=== PATIENT | female | born 1980 | race Caucasian/White ===

== ENCOUNTER → 2020-03-17 | Outpatient (CLI) | payer OTHER ==
[~2020-03-17] MED LIST: ASPI81TA26 PO; CLAR10CA3 PO; E-Z-GAS II EFFERVESCENT PACKET (SODIUM BICARB./CITRIC ACID/SIMETHICONE) As Ordered ONE; E-Z-HD 98% w/w 340GM SUSP BTL As Ordered ONE; E-Z-PAQUE 96% w/w SUSP 176GM BTL As Ordered ONE; IMIT50TA PO; LAMI1TAB7 PO; MULTCAP PO; VITAD400CA FT
--- NOTE | 2020-03-17 14:59 | REP ---
Examination Requested: Esophagram Barium Swallow Reason For Exam/Comment: Dysphasia Esophagram: The procedure was performed RICHARD Wells, under the direct supervision of Dr. Mccarthy. The images were reviewed with Dr. Mccarthy. 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 The superior mediastinal structures are midline. The heart size is within normal limits. The lungs are clear. There are bilateral thyroid nodule calcifications. Liquid barium and gas producing granules were given in the erect position as well as liquid barium in the prone oblique position, in order to perform a double contrast esophagram examination. Oral and pharyngeal stages of the examination were unremarkable. Esophageal transport is efficient and there is no esophagitis, stricture, or mucosal ring noted. There is no hiatal hernia noted. Gastroesophageal reflux was not visualized during the course of this exam. Impression: 1. Unremarkable esophagram. 0.2 minutes of fluoroscopy time was utilized for this procedure. Some fluoroscopic images are performed with last image hold technology. These images require no additional radiation. Reviewed by RICHARD Bourgeois 03/17/2020 02:32 P Electronically Signed by Rei Mccarthy MD 03/17/2020 02:49 P
== END ==
LOC: M RAD 07:36
PROVIDERS: ATTEND Otolaryngology
DX: F45.8 Other somatoform disorders (principal)

== ENCOUNTER → 2020-04-02 | Outpatient (CLI) | payer OTHER ==
[~2020-04-02] MED LIST changes: -E-Z-GAS II EFFERVESCENT PACKET (SODIUM BICARB./CITRIC ACID/SIMETHICONE) As Ordered ONE; -E-Z-HD 98% w/w 340GM SUSP BTL As Ordered ONE; -E-Z-PAQUE 96% w/w SUSP 176GM BTL As Ordered ONE
[2020-04-02 15:40] LABS: FREE T3 3.4 PG/ML (2.2-4.0); FREE T4 1.07 NG/DL (0.76-1.46); THYROID PEROXIDASE ANTIBODY < 28.0 U/ML (<60.0)
[2020-04-02 15:41] LABS: THYROGLOBULIN ANTIBODY > 500.0 U/ML (<60.0)
== END ==
LOC: M LAB 14:05
PROVIDERS: ATTEND Otolaryngology
DX: E04.9 Nontoxic goiter, unspecified (principal)

== ENCOUNTER → 2020-04-29 | Outpatient (CLI) | payer OTHER ==
[~2020-04-29] MED LIST changes: +LIDOCAINE 1% MDV 20ML VIAL ONE; +SODIUM BICARBONATE 8.4% INJ 50MEQ 50 ML VIAL ONE
--- NOTE | 2020-06-13 08:43 | REP ---
ULTRASOUND-GUIDED NECK AND THYROID BIOPSY This procedure was performed by RICHARD Wells under the direct supervision of Dr. Magdaleno. The risks and benefits of the procedure were explained to the patient prior and an informed consent was obtained both verbally and written. Prior to the start of the procedure, a formal time-out was completed in the exam room. Both of the right and left lateral neck masses, as well as the thyroid isthmus mass were localized using ultrasound guidance. The skin was prepped and draped in a sterile fashion. A total of 17 mL of buffered Lidocaine was used as a local anesthetic over the three areas. Using ultrasound guidance, four fine needle aspirations were obtained using 25-gauge needles of each of these nodules. Another two fine needle aspirations were obtained using 25-gauge needles of each of these nodules and sent out for Afirma testing. The patient tolerated the procedure well and there were no immediate complications. After the appropriate amount of monitored convalescence, the patient was discharged from the department. CATRINA
== END ==
LOC: M IRPRO 12:52 → M RAD 12:52
PROVIDERS: ATTEND Otolaryngology
DX: E04.9 Nontoxic goiter, unspecified (principal); D34 Benign neoplasm of thyroid gland

== ENCOUNTER → 2020-08-01 | Outpatient (CLI) | payer OTHER ==
[~2020-08-01] MED LIST changes: +ISOVUE-370 76% 100ML VIAL As Ordered ONE; -LIDOCAINE 1% MDV 20ML VIAL ONE; -SODIUM BICARBONATE 8.4% INJ 50MEQ 50 ML VIAL ONE
--- NOTE | 2020-08-01 09:32 | REP ---
INDICATION: PAIN IN THROAT, NONTOXIC GOITER. Patient is status post ultrasound-guided bilateral FNA dated March 11, 2020 and April 29, 2020 with pathologic results benign follicular cells. COMPARISON: Comparison sonography July 04, 2019 and March 11, 2020.. TECHNIQUE: Helical scanning is acquired. 3 mm axial images re-formatted. Coronal and sagittal MPR images are generated and reviewed. 75 mL of intravenous Isovue 370 is administered. FINDINGS: Digital preliminary rad technologist views are unremarkable. 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 This is unchanged from MRI study of the brain March 27, 2012. Visualized intracranial structures are otherwise unremarkable. No intraorbital lesion is seen. The visualized paranasal sinuses are clear. There is a small mucous retention cyst in each maxillary sinus. No bony destructive lesion is seen. There is degenerative disc disease at C5-6 with anterior and posterior spurring. There are multiple thyroid nodules several of which contain peripheral calcification. These extend from the inferior aspect of the gland into the thoracic inlet bilaterally. In addition, there is extra thyroidal adenopathy in the neck bilaterally suggesting regional thyroid metastatic adenopathy. The largest extrathyroidal mass contains calcifications. This is present in the right neck and measures 4.5 cm craniocaudal by 1.7 cm anteroposterior by 2.6 cm right to left. There are multiple other adjacent lymph nodes in the right neck including a 2.7 cm node caudal to this larger node. There is adenopathy in the supraclavicular region on the left with a partially calcified katerin mass measuring 3.6 cm craniocaudal by 2.9 cm right to left by 1.8 cm anterior to posterior. At the thoracic inlet there is a hyperdense/enhancing lymph node to the right of the trachea measuring 2.7 cm in greatest diameter. There are scattered borderline size normal density lymph nodes in the anterior and submandibular region bilaterally. The largest of these on the left measures 1 cm in short axis dimension. Lung window settings demonstrate multiple noncalcified bilateral upper lobe pulmonary nodules consistent with pulmonary metastatic lesions. Tonsillar and peritonsillar soft tissues are unremarkable. Parotid and submandibular glands are normal and symmetric. No glottic or subglottic airway lesion is seen. IMPRESSION: There is a multinodular thyroid pattern. However, there is extensive and fairly bulky high attenuation bilateral neck adenopathy. 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 There are also multiple pulmonary nodules visible at the top of the lungs which are likely pulmonary metastases.. Preliminary written report was faxed to the referring provider's office and a telephone message was left. <Electronically signed by Dave Mccarthy > 08/01/20 [id number]
== END ==
LOC: M RAD 07:38
PROVIDERS: ATTEND Otolaryngology
DX: R07.0 Pain in throat (principal); E04.2 Nontoxic multinodular goiter; R91.8 Other nonspecific abnormal finding of lung field
CPT/HCPCS: 70491; Q9967

== ENCOUNTER → 2020-08-07 | Outpatient (CLI) | payer OTHER ==
[~2020-08-07] MED LIST changes: -VITAD400CA FT; +VITAD400CA PO
--- NOTE | 2020-08-07 08:37 | REP ---
INDICATION: MALIGNANT NEOPLASM OF THYROID GLAND COMPARISON: None TECHNIQUE: Axial contrast enhanced images from the thoracic inlet to the upper abdomen with coronal and sagittal reformations using 75 ml Isovue [address] intravenous [address] examination was performed using the following dose reduction techniques: Automated exposure control, adjustment of mA and/or kv according to the patient's size, and use of iterative reconstruction technique. FINDINGS: Poor inspiratory effort decreases conspicuity and prominence to the pulmonary vasculature and interstitium thereby somewhat limiting examination. However, innumerable bilateral noncalcified pulmonary nodules consistent with thyroid metastases are identified measuring up to 13.3 mm diameter. No focal consolidation. No effusion. Mild mediastinal adenopathy cannot be excluded. Thoracic aorta, pulmonary vasculature, and heart/pericardium appear normal. The thyroid gland is enlarged and heterogeneous with a large left lower pole nodular mass measuring approximately 3.4 x 3.1 x 2.9 cm. Surrounding osseous structures are intact and without acute osseous abnormality. Limited upper abdomen demonstrates normal bilateral adrenal glands. IMPRESSION: Innumerable scattered metastatic foci measuring up to 13.3 mm diameter. Heterogeneous enlarged nodular thyroid with left lower pole masslike component. <Electronically signed by Jon Lai > 08/07/20 [id number]
== END ==
LOC: M RAD 07:38
PROVIDERS: ATTEND Otolaryngology
DX: C73 Malignant neoplasm of thyroid gland (principal)
CPT/HCPCS: 71260; Q9967

== ENCOUNTER → 2020-08-12 | Outpatient (CLI) | payer OTHER ==
[~2020-08-12] MED LIST changes: -ISOVUE-370 76% 100ML VIAL As Ordered ONE
--- NOTE | 2020-08-13 14:31 | REP ---
INDICATION: STAGING THYROID CANCER. COMPARISON: CT of the chest 08/07/[address] neck 08/01/2020. No prior PET-CT. TECHNIQUE: After the intravenous administration of 8.75 mCi of FDG 18 triplane whole-body PET-CT was performed from the skull base to the mid thigh. FINDINGS: The bulky neck adenopathy and neck masses seen not only on the prior CT of the neck but on the prior chest CT is again noted but in a limited fashion on today's CT component of this exam. All bulky areas are abnormally hypermetabolic with maximal SUV value of 3.21. Patchy hypermetabolic activity is seen in the thyroid gland itself. This has a maximal SUV value of 3.96. This patchy uptake, however, is more diffuse than it is focal. No other areas of abnormal hypermetabolic activity are seen in the neck, chest, abdomen, or pelvis. Multifocal hypermetabolic activity seen throughout the vertebral bodies. This is assuming hypermetabolism begins at 2.5 rather than 3.0 SUV value. IMPRESSION: Abnormal CT-PET as described above. <Electronically signed by Javier Rodriguez > 08/13/20 [id number]
== END ==
LOC: M PLARAD 13:58
PROVIDERS: ATTEND Otolaryngology
DX: C73 Malignant neoplasm of thyroid gland (principal)
CPT/HCPCS: 78815; A9552

== ENCOUNTER → 2020-08-13 | Outpatient (CLI) | payer OTHER | LOC: M LABSMTC 14:06 | PROVIDERS: ATTEND Anesthesiology | DX: Z01.812 Encounter for preprocedural laboratory examination (principal); Z20.828 Contact with and (suspected) exposure to other viral communicable diseases ==

== ENCOUNTER 2020-08-18 06:09 | Inpatient (IN) | payer OTHER ==
[2020-08-18] VITALS (28 sets, daily range): BP systolic 104–119; BP diastolic 55–69; O2SAT 97
[~2020-08-18] VITALS: Ht 149.9 cm; Wt 73.1 kg
[~2020-08-18 06:09] MED LIST changes: +CLINDAMYCIN 300 MG in IV 1 EA IV ONE; +LR 1,000 ML IV ONE; +dexameTHASONE 4 MG/ML 1ML VIAL (J1100 PER 1MG) IV ONE
[2020-08-18 06:45] LABS: HEMATOCRIT 39.2 % (36.0-47.0); HEMOGLOBIN 12.7 g/dl (12.0-15.5); MEAN CORPUSCULAR HEMOGLOBIN 29.1 pg (27.0-33.0); MEAN CORPUSCULAR HGB CONC 32.4 g/dl (32.0-36.5); MEAN CORPUSCULAR VOLUME 89.7 fl (80.0-96.0); PLATELET COUNT, AUTOMATED 373 10^3/uL (150-450); RED BLOOD COUNT 4.37 10^6/uL (4.00-5.40); WHITE BLOOD COUNT 7.4 10^3/uL (4.0-10.0)
[2020-08-18] MEDS ORDERED: LIDOCAINE 2% 100MG/5ML SDV (FOR ANES.) As Ordered ONE (07:02)
[2020-08-18] MEDS ORDERED: ROCURONIUM BROMIDE 50 MG/5 ML VIAL As Ordered ONE (07:02)
[2020-08-18] MEDS ORDERED: propofoL 200 MG/20 ML VIAL As Ordered ONE (07:02)
[2020-08-18] MEDS ORDERED: dexameTHASONE 4 MG/ML 1ML VIAL (J1100 PER 1MG) As Ordered ONE ×2 (07:03→14:29)
[2020-08-18] MEDS ORDERED: fentaNYL 100 MCG/2 ML INJECTION (J3010) As Ordered ONE ×4 (07:03→11:21)
[2020-08-18] MEDS ORDERED: SUGAMMADEX SODIUM 500 MG/5 ML VIAL (BRIDION) As Ordered ONE (07:03)
[2020-08-18] MEDS ORDERED: ONDANSETRON 4MG/2ML VIAL As Ordered ONE (07:03)
[2020-08-18] MEDS ORDERED: MIDAZOLAM INJ 2MG/2ML VIAL (J2250 PER 1MG) As Ordered ONE ×2 (07:03→17:09)
[2020-08-18 07:05] LABS: ALBUMIN 2.6 GM/DL (3.2-5.2); ALT/SGPT 29 U/L (12-78); BILIRUBIN,TOTAL 0.2 MG/DL (0.2-1.0); BLOOD UREA NITROGEN 16 MG/DL (7-18); CALCIUM LEVEL 9.2 MG/DL (8.5-10.1); CARBON DIOXIDE LEVEL 24 MEQ/L (21-32); CHLORIDE LEVEL 109 MEQ/L (98-107); GLOMERULAR FILTRATION RATE > 60.0 (>60); GLUCOSE, FASTING 105 MG/DL (70-100); POTASSIUM SERUM 3.9 MEQ/L (3.5-5.1); SODIUM LEVEL 139 MEQ/L (136-145); TOTAL PROTEIN 8.1 GM/DL (6.4-8.2)
[2020-08-18] MEDS ORDERED: LIDOCAINE W/EPINEPHRINE 1% 20ML VIAL As Ordered ONE (07:43)
[2020-08-18] MEDS ORDERED: PHENYLephrine HCL 500 MCG/5 ML (100MCG/ML) SYRINGE (J2370) As Ordered ONE (09:09)
[2020-08-18] MEDS ORDERED: HYDROmorphone HCL 2 MG/ML 1ML VIAL (J1170) As Ordered ONE (12:03)
[2020-08-18] MEDS ORDERED: CLINDAMYCIN 600 MG/50 ML PREMIX BAG As Ordered ONE (13:54)
[2020-08-18] MEDS ORDERED: BACITRACIN OINTMENT 30GM TUBE As Ordered ONE (16:28)
[2020-08-18] MEDS ORDERED: MIDAZOLAM INJ 2MG/2ML VIAL (J2250 PER 1MG) IV STA (17:13)
[2020-08-18] MEDS ORDERED: PROPOFOL 1,000 MG/100 ML VIAL As Ordered ONE (17:17)
[2020-08-18] MEDS: propofoL 1,000 MG in IV 1 EA IV SCH ×2 (17:22→21:15)
[2020-08-18 17:41] LABS: ABG HCO3 15.8 MEQ/L (22.0-26.0); ABG PARTIAL PRESSURE CO2 26.7 mmHg (35.0-45.0); ABG PARTIAL PRESSURE O2 91.9 mmHg (75.0-100.0); ABG TOTAL CO2 16.6 MEQ/L (22.0-29.0)
[2020-08-18 17:42] LABS: ABG BASE EXCESS -7.6 (-2.0-2.0); ABG O2 SATURATION 97.2 % (95.0-99.0); ABG STANDARD HCO3 18.3 MEQ/L (22.0-26.0)
[2020-08-18] MEDS: MIDAZOLAM INJ 2MG/2ML VIAL (J2250 PER 1MG) IV PRN ×3 (17:53→23:27)
[2020-08-18 17:57] LABS: HEMATOCRIT 35.6 % (36.0-47.0); HEMOGLOBIN 11.8 g/dl (12.0-15.5); MEAN CORPUSCULAR HEMOGLOBIN 29.3 pg (27.0-33.0); MEAN CORPUSCULAR HGB CONC 33.1 g/dl (32.0-36.5); MEAN CORPUSCULAR VOLUME 88.3 fl (80.0-96.0); PLATELET COUNT, AUTOMATED 357 10^3/uL (150-450); RED BLOOD COUNT 4.03 10^6/uL (4.00-5.40); WHITE BLOOD COUNT 16.8 10^3/uL (4.0-10.0)
--- NOTE | 2020-08-18 18:06 | HPE ---
HISTORY AND PHYSICAL DATE OF ADMISSION: 08/18/2020 CRITICAL CARE TIME: One hour and 21 minutes. This excludes all procedures. HISTORY OF PRESENT ILLNESS: I was called postoperatively to attend this 39-year-old female status post total thyroidectomy due to a thyroid mass initially open biopsy, which was converted to total thyroidectomy and bilateral neck dissection. This 39-year-old female had presented with thyroid mass, multiple pulmonary nodules, and underwent fine needle aspiration without diagnosis and therefore, proceeded to the surgery. Prior to this, the patient has had no active medical issues. She is intubated, sedated, and on mechanical ventilation with adequate oxygen saturation and blood pressure. PAST MEDICAL HISTORY: 1. CVA with right-sided hemiparesis residual. 2. Seizure disorder. Has not had a seizure in over 10 years. It appears that she is on lamotrigine chronically. 3. New findings of thyroid mass, pulmonary nodules yet to be completely worked up. 4. No other medical history that I can obtain. The patient is unable to provide any past medical history due to intubation, mechanical ventilation, and there is no family available at this point in time. ALLERGIES: PENICILLINS. HOME MEDICATIONS: - aspirin 81 mg - lamotrigine 125 mg p.o. b.i.d. - loratadine 10 mg p.o. daily - multivitamin one tab p.o. daily - sumatriptan 10 mg p.o. daily; therefore, I suspect she has chronic migraines. - vitamin D3 at 400 mcg p.o. daily REVIEW OF SYSTEMS: Unobtainable. SOCIAL HISTORY: Unobtainable. PHYSICAL EXAMINATION: VITAL SIGNS: Temperature 99.0, pulse 107, respiratory rate 20, blood pressure 164/100. Oxygen saturation is 99% on room air. These were preop settings, preop vitals. Postop vitals show a sinus tachycardia at 121, respiratory rate of 23, temperature 97.5, oxygen saturation 96% on 0.40 on mechanical ventilation volume control. Tidal volume 420, respiratory rate of 22 with PEEP of 5. Blood pressure is 114/60 on propofol drop. GENERAL: The patient is sedated on mechanical ventilation. Does open her eyes spontaneously. HEENT: Sclerae clear and anicteric. Pupils equal and reactive to light. Some tongue swelling. Endotracheal tube is in place. Sutures appear well intact. There is ARCHIE drain in the neck with some serosanguineous fluid. CARDIAC: Tachycardic S1, S2 without audible murmur, rub, or gallop. No elevated JVP. No peripheral edema. PULMONARY: Clear to auscultation without rales, rhonchi, or wheezes. No dullness to percussion. No accessory muscle use. ABDOMEN: Soft, nontender, and nondistended with no hepatosplenomegaly. No mass. No hernia. SKIN: Pale without rash, jaundice, or bruising. MUSCULOSKELETAL: Chronic abnormalities of the right arm from prior hemiparesis. Left arm more developed and normal. Pulses are palpable bilaterally and symmetric. NEUROLOGIC: No spontaneous movement other than spontaneous opening of the eyes at this point in time; however, given the neck swelling, we will keep her sedated until tomorrow morning. LABORATORY EVALUATION: Still pending postoperative. Preoperative white blood cell count was 7.4, hemoglobin 12.7, platelet count of 373,000. Chemistry preoperatively shows a sodium of 139, potassium 3.9, chloride 109, bicarb of 24, BUN of 16, creatinine of 0.8, and a fasting glucose of 105. Calcium at that point was 9.2. AST and ALT were normal. Albumin was low at 2.6. IMAGING: Chest CT was reviewed showing multiple round lesions; innumerable noncalcified lesions just over 1 cm. No evidence of focal consolidation. No significant mediastinal adenopathy. Thyroid is obviously enlarged and heterogeneous with a left lower lobe pole mass measuring 3.4 x 3.9 cm. PET imaging from 08/12 showed hypermetabolic uptake in the thyroid lesion and some vertebral bodies along with bulky neck adenopathy. There was no mention of uptake in the lung with the previous pulmonary nodules seen. IMPRESSION: A 39-year-old female status post thyroidectomy a fairly long procedure remaining intubated in order to allow for recovery from airway swelling. 1. Respiratory failure secondary to airway swelling postoperative state on dexamethasone as prescribed by ENT. Will continue on volume-control ventilation to prevent pneumonia; propofol and midazolam for sedation. I expect she will likely be able to extubate tomorrow morning if not the next day. 2. Thyroid mass status post total thyroidectomy. Will need frequent calcium and PTH monitoring. This has already been ordered every six hours by the ear, nose, and throat physician. 3. History of stroke with right hemiparesis. 4. Pulmonary nodules with possible metastatic disease to the lung. Will likely need evaluation as an outpatient of these pulmonary nodules. 5. Hypoalbuminemia. We will initiate feeding as soon as possible. 6. Deep vein thrombosis (DVT) prophylaxis with TEDs and sequentials. May start heparin when surgically appropriate. 7. Protonix on gastrointestinal (GI) prophylaxis.
--- NOTE | 2020-08-18 18:23 | REP ---
INDICATION: RESP FAILURE POST OP. COMPARISON: None TECHNIQUE: Portable FINDINGS: The technique utilized in obtaining the radiograph has magnified the cardiac silhouette and attenuated the interstitial markings. There is an endotracheal tube seen the tip of which is in satisfactory position at the level of the clavicular heads. A nasogastric tube is seen the tip of which is in the left upper quadrant beneath the diaphragmatic surface of the left lung within the stomach body region. The lung jarvis are clear. The cardiomediastinal silhouette is within normal limits. The osseous structures are within normal limits. IMPRESSION: Tubes as described above. There is no evidence of acute cardiopulmonary disease. <Electronically signed by Javier Rodriguez > 08/18/20 [id number]
[2020-08-18 18:39] LABS: ALBUMIN 3.4 GM/DL (3.2-5.2); ALT/SGPT 27 U/L (12-78); BILIRUBIN,TOTAL 0.8 MG/DL (0.2-1.0); BLOOD UREA NITROGEN 19 MG/DL (7-18); CALCIUM LEVEL 8.8 MG/DL (8.5-10.1); CARBON DIOXIDE LEVEL 20 MEQ/L (21-32); CHLORIDE LEVEL 109 MEQ/L (98-107); CREATININE FOR GFR 1.13 MG/DL (0.55-1.30); GLOMERULAR FILTRATION RATE 57.4 (>60); GLUCOSE, FASTING 188 MG/DL (70-100); POTASSIUM SERUM 4.9 MEQ/L (3.5-5.1); PTH INTACT < 6.3 PG/ML (18.5-88.0); SODIUM LEVEL 137 MEQ/L (136-145); TOTAL PROTEIN 7.3 GM/DL (6.4-8.2)
[2020-08-18] MEDS: IPRATROPIUM 0.5MG/ALBUTEROL 2.5MG INH SOL UD 3ML (DUONEB) NEB SCH (19:25)
[2020-08-18] MEDS: LR 1,000 ML IV SCH (20:24)
[2020-08-18] MEDS ORDERED: CHLORHEXIDINE GLUCONATE 0.12 % 15ML UDC (PERIDEX ORAL RINSE) MT SCH (21:00)
[2020-08-18] MEDS: CLINDAMYCIN 300 MG in IV 1 EA IV SCH (21:15)
[2020-08-18] MEDS: dexameTHASONE 4 MG/ML 1ML VIAL (J1100 PER 1MG) IV SCH (22:54)
[2020-08-18] MEDS: MORPHINE 2 MG/ML 1ML VIAL (J2270) IV PRN (23:28)
[2020-08-19] VITALS (30 sets, daily range): BP systolic 103–154; BP diastolic 55–76; O2SAT 98
[2020-08-19] MEDS: propofoL 1,000 MG in IV 1 EA IV SCH ×2 (00:44→06:10)
[2020-08-19] MEDS: MORPHINE 2 MG/ML 1ML VIAL (J2270) IV PRN ×3 (02:01→06:11)
[2020-08-19] MEDS: MIDAZOLAM INJ 2MG/2ML VIAL (J2250 PER 1MG) IV PRN (04:06)
[2020-08-19 05:12] LABS: HEMATOCRIT 33.3 % (36.0-47.0); HEMOGLOBIN 10.9 g/dl (12.0-15.5); MEAN CORPUSCULAR HGB CONC 32.7 g/dl (32.0-36.5); MEAN CORPUSCULAR VOLUME 88.6 fl (80.0-96.0); PLATELET COUNT, AUTOMATED 295 10^3/uL (150-450); RED BLOOD COUNT 3.76 10^6/uL (4.00-5.40); WHITE BLOOD COUNT 13.6 10^3/uL (4.0-10.0)
[2020-08-19] MEDS: CLINDAMYCIN 300 MG in IV 1 EA IV SCH ×2 (05:52→14:05)
[2020-08-19 05:58] LABS: ABG BASE EXCESS -4.8 (-2.0-2.0); ABG HCO3 18.3 MEQ/L (22.0-26.0); ABG PARTIAL PRESSURE CO2 28.4 mmHg (35.0-45.0); ABG PARTIAL PRESSURE O2 104.9 mmHg (75.0-100.0); ABG STANDARD HCO3 20.5 MEQ/L (22.0-26.0); ABG TOTAL CO2 19.2 MEQ/L (22.0-29.0); ABG pH (ARTERIAL) 7.428 UNITS (7.350-7.450)
[2020-08-19] MEDS: dexameTHASONE 4 MG/ML 1ML VIAL (J1100 PER 1MG) IV SCH ×2 (06:11→15:00)
[2020-08-19] MEDS: IPRATROPIUM 0.5MG/ALBUTEROL 2.5MG INH SOL UD 3ML (DUONEB) NEB SCH ×4 (07:23→19:39)
[2020-08-19] MEDS: LR 1,000 ML IV SCH ×2 (07:42→14:04)
--- NOTE | 2020-08-19 08:12 | REP ---
INDICATION: THYROIDECTOMY. COMPARISON: Comparison exam is from the previous day August 18, 2020.. TECHNIQUE: AP semi-erect portable radiograph. FINDINGS: Monitoring electrodes and oxygen delivery tubing are noted. An endotracheal tube is seen in place in good position at the level of the proximal clavicles. NG tube enters the left upper quadrant of the abdomen. There is platelike atelectasis in the right base and increased density in the left lower lobe posteriorly. These findings are similar to the previous day's radiograph. IMPRESSION: Bibasilar opacities, discoid atelectasis on the right and infiltrate versus atelectasis on the left unchanged. Endotracheal and nasogastric tubes in place. <Electronically signed by Dave Mccarthy > 08/19/20 [id number]
[2020-08-19 08:25] LABS: BLOOD UREA NITROGEN 16 MG/DL (7-18); CALCIUM LEVEL 7.9 MG/DL (8.5-10.1); CARBON DIOXIDE LEVEL 20 MEQ/L (21-32); CHLORIDE LEVEL 108 MEQ/L (98-107); GLOMERULAR FILTRATION RATE > 60.0 (>60); GLUCOSE, FASTING 145 MG/DL (70-100); POTASSIUM SERUM 4.7 MEQ/L (3.5-5.1); SODIUM LEVEL 137 MEQ/L (136-145)
[2020-08-19] MEDS ORDERED: PERCOCET 5MG/325MG TAB PO PRN (08:45)
[2020-08-19 09:09] LABS: PTH INTACT < 6.3 PG/ML (18.5-88.0)
[2020-08-19] MEDS: CALCITRIOL 0.25 MCG CAP (S0169) PO SCH (09:49)
[2020-08-19] MEDS: PANTOPRAZOLE 40MG VIAL (C9113 PER 1) IV SCH (09:51)
[2020-08-19] MEDS: lamoTRIgine 100MG TAB PO SCH ×2 (09:51→20:28)
[2020-08-19] MEDS: lamoTRIgine 25 MG TAB PO SCH ×2 (11:12→20:28)
[2020-08-19] MEDS: CALCIUM CARBONATE 500 MG CHEW U/D PO SCH ×3 (14:04→20:28)
--- NOTE | 2020-08-19 14:21 | IPNPDOC ---
Text Note Date of Service The patient was seen on 08/19/20. NOTE Subjective: Patient was seen and examined this morning at bedside. Patient is lying comfortably in bed, she is able to speak softly back to me with a hoarse voice postoperatively. She says she's been able to tolerate her breakfast well and was drinking some soda while speaking to me. She denies being in any pain. Nurse reports no overnight events. Patient was extubated this morning by Dr. Corral. She was able to get out of bed to bedside camode. Kapadia removed. Objective: Constitutional: Awake and alert, in no apparent distress ENT: Sclera are clear. Mucosa is moist. Post surgical neck with shaun along incision site. Clean site with ARCHIE drains serosanguineous fluid. Voice soft and hoarse. Respiratory: Lungs CTA bilaterally. No respiratory distress. No use of acces kaila muscles. Cardiovascular: RRR S1 and S2 are normal, no murmur Gastrointestinal: Abdomen is soft, non distended, non tender, BS present. Musculoskeletal: No LE edema. Neurologic: Increased tone right more than left, fist clenched which patient tells me is normal and she gets Botox injections every 3 months. Mental Status: A&O x3, normal affect Skin: Warm, dry Assessment/plan: 39-year-old female found to have a thyroid mass s/p total thyroidectomy 08/18/[address] Jean. Admitted to medical service post op for post op care and medical management. Left intubated post op for neck airway edema and extubated by Dr Corral 08/19/2020 s/p IV dexamethasone. # Thyroid mass s/p total thyroidectomy: Post op 08/18/[address] Jean. Calcium and PTH monitoring per ENT On calcium carbonate 500mg qid. IV dexamethasone 3 doses per ENT. Tolerating diet now. IV clindamycin. PT/OT eval. Kapadia removed. Percocet PRN pain. Calcitriol. # Pulmonary nodules: this could be possible metastatic lung disease. Per Pulm recs by Dr Corral should get OP evaluation for these nodules. # Hx stroke with residual R hemiparesis: ASA, Statin. Receives botox every 3 months for increased R muscle tone. # Hx seizure: last seizure 11 years ago. Continue home lamictal. # Hypoalbuminemia: tolerating diet now. # Obese: BMI 32.5. Complicates care. # DVT prophylaxis: Heparin when cleared by ENT [facility] Tom CORNELIUS, I+O Tom CORNELIUS I+O Laboratory Tests 08/18/20 17:43 08/19/20 04:59 Vital Signs Date Time Temp Pulse Resp B/P (MAP) Pulse Ox O2 Delivery O2 Flow Rate FiO2 08/19/20 11:30 113 121/58 (79) 94 Room Air 08/19/20 08:30 30 08/19/20 08:20 28 08/19/20 08:00 99.7 I&O- Last 24 Hours up to 6 AM 08/19/20 06:00 Intake Total 619 ml Output Total 1600 ml Balance -981 ml BRIAN SILVA MD Aug 19, 2020 12:35
--- NOTE | 2020-08-19 17:17 | IPN ---
CRITICAL CARE NOTE DATE: 08/19/2020 CRITICAL CARE TIME: 43 minutes, this excludes all procedures. SUBJECTIVE: The patient was tachycardic with occasional PVC, this morning wide awake, able to follow commands. She shakes her head yes when asked if she wants to have the tube removed. She has residual right hemiparesis from a stroke as a child. I placed her on pressor support 5/5, tolerated this well, tachycardia was maintained at the same rate. I checked for an air leak, there was a good air leak, therefore I extubated her at bedside today. PHYSICAL EXAMINATION: VITAL SIGNS: Pulse is 113, respiratory rate is 24, blood pressure is 120/67 with a mean arterial pressure of 84, oxygen saturation is 98% on 0.40 FIO2. Temperature is 99.1 temporally. GENERAL: Awake, able to follow commands, not speaking as of yet due to the significant airway edema. No evidence of stridor. Surgical incision is intact without fluctuance. ARCHIE drains are present. CARDIAC: Tachycardic S1 and S2 without audible murmur, rub or gallop. No elevated JVP. No systemic edema. PULMONARY: Clear to auscultation without rales, rhonchi or wheezes. No dullness to percussion. No accessory muscle use. ABDOMEN: Soft, nontender and nondistended. No hepatosplenomegaly. No masses or hernia. EXTREMITIES: No cyanosis, clubbing or edema. Right arm with decreased muscle tone with right hemiparesis. Left arm is normal. Peripheral pulses are palpable and symmetric. SKIN: Pale without rashes, jaundice, or bruising. NEUROLOGIC: No evidence of seizure, asterixis or tremor. LABORATORY EVALUATION: White blood cell count of 13.6, hemoglobin of 10.9, hematocrit of 33.3 with a platelet count of 295,000. Sodium is 137, potassium is 4.7, chloride is 108, bicarbonate is 20, BUN 16, creatinine of 0.8. Glucose of 145. Ical is 4.1. Chest x-ray: There is minimal right hilar fullness. She has known diffuse pulmonary nodules that require workup as an outpatient. IMPRESSION: 1. A 39-year-old female who presents with history of respiratory failure due to extensive thyroidectomy and cervical node dissection, passed spontaneous breathing trial this morning and had an air leak, therefore a trial of extubation today. She will be closely monitored in the ICU due to airway edema. In the meantime, I have already consulted the Hospitalist Service to transition her. I have written Percocet for pain and discontinued IV Morphine. 2. Hypocalcemia with low PTH, likely iatrogenic hypoparathyroidism. I have added Calcitriol this morning, she may need more Calcitriol in addition to what I have already ordered. 3. Minimal x-ray changes, likely atelectasis, possible minimal aspiration of secretions. Will continue to monitor for signs of infection. 4. To reduce her infectious risk, will discontinue Kapadia. She has no central line at this point in time. 5. DVT prophylaxis is with TEDs and Jovany's until Heparin is surgically appropriate. 6. GI prophylaxis with Protonix until patient is off steroids. Critical Care time is mentioned above, this excludes all procedures. MTDD
[2020-08-19] MEDS: NAPROXEN 250 MG TAB PO PRN (21:55)
[2020-08-20] VITALS: BP 140/89
[2020-08-20] MEDS: MAG SULF 1GM/100ML (MAG RUN) 1 GM in IV 1 EA IV SCH ×2 (00:09→01:10)
[2020-08-20] MEDS: LR 1,000 ML IV SCH ×2 (00:12→09:48)
[2020-08-20 04:00] VITALS: BP 136/90
[2020-08-20 05:55] LABS: HEMATOCRIT 30.7 % (36.0-47.0); MEAN CORPUSCULAR HGB CONC 32.6 g/dl (32.0-36.5); PLATELET COUNT, AUTOMATED 275 10^3/uL (150-450); RED BLOOD COUNT 3.45 10^6/uL (4.00-5.40); WHITE BLOOD COUNT 11.4 10^3/uL (4.0-10.0)
[2020-08-20 06:23] LABS: BLOOD UREA NITROGEN 19 MG/DL (7-18); CALCIUM LEVEL 7.2 MG/DL (8.5-10.1); CARBON DIOXIDE LEVEL 25 MEQ/L (21-32); CHLORIDE LEVEL 108 MEQ/L (98-107); CREATININE FOR GFR 0.67 MG/DL (0.55-1.30); GLOMERULAR FILTRATION RATE > 60.0 (>60); GLUCOSE, FASTING 96 MG/DL (70-100); POTASSIUM SERUM 3.8 MEQ/L (3.5-5.1); SODIUM LEVEL 140 MEQ/L (136-145)
[2020-08-20] MEDS: IPRATROPIUM 0.5MG/ALBUTEROL 2.5MG INH SOL UD 3ML (DUONEB) NEB SCH ×4 (07:51→19:49)
[2020-08-20 08:00] VITALS: BP 152/81
[2020-08-20 09:16] LABS: MAGNESIUM LEVEL 2.1 MG/DL (1.8-2.4)
[2020-08-20] MEDS: PANTOPRAZOLE 40MG VIAL (C9113 PER 1) IV SCH (09:45)
[2020-08-20] MEDS: lamoTRIgine 25 MG TAB PO SCH ×2 (09:45→19:13)
[2020-08-20] MEDS: CALCIUM CARBONATE 500 MG CHEW U/D PO SCH ×4 (09:45→20:20)
[2020-08-20] MEDS: CALCITRIOL 0.25 MCG CAP (S0169) PO SCH (09:45)
[2020-08-20] MEDS: lamoTRIgine 100MG TAB PO SCH ×2 (09:45→19:13)
--- NOTE | 2020-08-20 14:44 | IPNPDOC ---
Text Note Date of Service The patient was seen on 08/20/20. NOTE Subjective: Patient was seen and examined this morning at bedside. Patient is lying comfortably in bed, she is able to speak softly back to me with a hoarse voice but its improved from yesterday. She says she's been able to tolerate her meals well. She denies being in any pain. Nurse reports no overnight events. Objective: Constitutional: Awake and alert, in no apparent distress ENT: Sclera are clear. Mucosa is moist. Post surgical neck with shaun along incision site. Clean site with ARCHIE drains 2xL 2xR serosanguineous fluid. Voice soft and hoarse but more clear and improved vs yesterday. Respiratory: Lungs CTA bilaterally. No respiratory distress. No use of access ory muscles. Cardiovascular: RRR S1 and S2 are normal, no murmur Gastrointestinal: Abdomen is soft, non distended, non tender, BS present. Musculoskeletal: No LE edema. Neurologic: Increased tone right more than left, fist clenched which patient tells me is normal and she gets Botox injections every 3 months. Mental Status: A&O x3, normal affect Skin: Warm, dry Assessment/plan: 39-year-old female found to have a thyroid mass s/p total thyroidectomy 08/18/[address] Jean. Admitted to medical service post op for post op care and medical management. Left intubated post op for neck airway edema and extubated by Dr Corral 08/19/2020 s/p IV dexamethasone. # Thyroid mass s/p total thyroidectomy: Post op 08/18/[address] Jean. Calcium and PTH monitoring per ENT On calcium carbonate 500mg qid. IV dexamethasone 3 doses per ENT. Tolerating diet now. IV clindamycin. PT/OT eval. Kapadia removed. Percocet PRN pain. Calcitriol. # Pulmonary nodules: this could be possible metastatic lung disease. Per Pulm recs by Dr Corral should get OP evaluation for these nodules. # Hx stroke with residual R hemiparesis: ASA, Statin. Receives botox every 3 months for increased R muscle tone. # Hx seizure: last seizure 11 years ago. Continue home lamictal. # Hypoalbuminemia: Improved, tolerating diet now. # Obese: BMI 32.5. Complicates care. # DVT prophylaxis: RE for now, Heparin when cleared by ENT Dispo: Home when cleared by ENT [facility] Tom CORNELIUS, I+O Tom CORNELIUS I+O Laboratory Tests 08/20/20 05:30 Vital Signs Date Time Temp Pulse Resp B/P (MAP) Pulse Ox O2 Delivery O2 Flow Rate FiO2 08/20/20 08:00 97.6 105 16 152/81 (104) 93 Room Air 08/19/20 08:30 30 I&O- Last 24 Hours up to 6 AM 08/20/20 06:00 Intake Total 2550 ml Output Total 995 ml Balance 1555 ml BRIAN SILVA MD Aug 20, 2020 14:44
[2020-08-20] MEDS: NAPROXEN 250 MG TAB PO PRN (14:59)
[2020-08-20 16:00] VITALS: BP 142/88
[2020-08-20] MEDS ORDERED: CALCITRIOL 0.25 MCG CAP (S0169) PO ONE (16:00)
[2020-08-20] MEDS ORDERED: SLF 3 ML SYR IV PRN (16:15)
[2020-08-20 16:19] VITALS: BP 147/83
[2020-08-20] MEDS ORDERED: BACITRACIN OINTMENT 30GM TUBE TOP ONE (20:00)
[2020-08-20] MEDS: SLF 3 ML SYR IV SCH (20:21)
[2020-08-20 22:00] VITALS: BP 152/81
[2020-08-21] MEDS: CALCIUM CARBONATE 500 MG CHEW U/D PO SCH ×2 (00:41→08:58)
[2020-08-21 06:00] VITALS: BP 154/84
[2020-08-21 06:30] LABS: HEMATOCRIT 32.5 % (36.0-47.0); HEMOGLOBIN 10.6 g/dl (12.0-15.5); MEAN CORPUSCULAR HEMOGLOBIN 29.2 pg (27.0-33.0); MEAN CORPUSCULAR HGB CONC 32.6 g/dl (32.0-36.5); MEAN CORPUSCULAR VOLUME 89.5 fl (80.0-96.0); PLATELET COUNT, AUTOMATED 293 10^3/uL (150-450); RED BLOOD COUNT 3.63 10^6/uL (4.00-5.40); WHITE BLOOD COUNT 9.6 10^3/uL (4.0-10.0)
[2020-08-21] MEDS: SLF 3 ML SYR IV SCH (06:41)
[2020-08-21] MEDS: lamoTRIgine 100MG TAB PO SCH (06:41)
[2020-08-21] MEDS: lamoTRIgine 25 MG TAB PO SCH (06:41)
[2020-08-21 07:00] LABS: BLOOD UREA NITROGEN 17 MG/DL (7-18); CARBON DIOXIDE LEVEL 24 MEQ/L (21-32); CHLORIDE LEVEL 106 MEQ/L (98-107); CREATININE FOR GFR 0.69 MG/DL (0.55-1.30); GLOMERULAR FILTRATION RATE > 60.0 (>60); GLUCOSE, FASTING 99 MG/DL (70-100); SODIUM LEVEL 139 MEQ/L (136-145)
[2020-08-21] MEDS: IPRATROPIUM 0.5MG/ALBUTEROL 2.5MG INH SOL UD 3ML (DUONEB) NEB SCH ×2 (07:03→11:04)
[2020-08-21] MEDS: PANTOPRAZOLE 40MG VIAL (C9113 PER 1) IV SCH (08:58)
[2020-08-21] MEDS ORDERED: CALCITRIOL 0.25 MCG CAP (S0169) PO SCH (09:00)
--- NOTE | 2020-08-21 10:42 | DS.PDOC ---
Discharge Summary General Date of Admission Aug 18, 2020 at 17:08 Date of Discharge 08/21/2020 Discharge Summary PROCEDURES PERFORMED DURING STAY: Total thyroidectomy ADMITTING DIAGNOSES: 1. Thyroid mass DISCHARGE DIAGNOSES: 1. Thyroid mass s/p total thyroidectomy COMPLICATIONS/CHIEF COMPLAINT: Thyroid Tumor, Lymphadenopathy. HISTORY OF PRESENT ILLNESS: From admitting H&P:39-year-old female status post total thyroidectomy due to a thyroid mass initially open biopsy, which was converted to total thyroidectomy and bilateral neck dissection. This 39-year-old female had presented with thyroid mass, multiple pulmonary nodules, and underwent fine needle aspiration without diagnosis and therefore, proceeded to the surgery. Prior to this, the patient has had no active medical issues. She is intubated, sedated, and on mechanical ventilation with adequate oxygen saturation and blood pressure. HOSPITAL COURSE: 39-year-old female found to have a thyroid mass s/p total thyroidectomy 08/18/[address] Jean. Admitted to medical service post op for post op care and medical management. Left intubated post op for neck airway edema and extubated by Dr Corral 08/19/2020 s/p IV dexamethasone. At time of discharge patient's total ionized calcium was uptrending and patient's daily calcium dose was increased with thousand 3 times a day. Patient was doing well and tolerating diet. Patients mother was educated by nurse on how to empty her ARCHIE drains at home. Patient was instructed to follow-up with ENT in clinic in 7 days for follow-up and shaun removal as well as following up on the biopsy results. Patient was instructed to follow-up with her primary care doctor within 3-5 days of discharge. # Thyroid mass s/p total thyroidectomy: Post op 08/18/[address] Jean. Calcium and PTH monitoring per ENT On calcium carbonate 500mg qid which was increased to 1000 TID at time of discharge. Total ionized calcium was uptrending at time of discharge. s/p IV dexamethasone 3 doses per ENT. Tolerating diet now. IV clindamycin hilary op. PT/OT cleared patient for dc safely to home. Kapadia removed. Tylenol PRN pain. Calcitriol dose increased to 1mcg. # Pulmonary nodules: this could be possible metastatic lung disease. Per Pulm recs by Dr Corral should get OP evaluation for these nodules. # Hx stroke with residual R hemiparesis: ASA, Statin. Receives botox every 3 months for increased R muscle tone. # Hx seizure: last seizure 11 years ago. Continue home lamictal. # Hypoalbuminemia: Improved, tolerating diet now. DISCHARGE MEDICATIONS: Please see below. ALLERGIES: Please see below. PHYSICAL EXAMINATION ON DISCHARGE: Constitutional: Awake and alert, in no apparent distress ENT: Sclera are clear. Mucosa is moist. Post surgical neck with shaun along incision site. Clean site with ARCHIE drains 2xL 2xR serosanguineous fluid. Voice soft and hoarse but more clear and improved Respiratory: Lungs CTA bilaterally. No respiratory distress. No use of accessory muscles. Cardiovascular: RRR S1 and S2 are normal, no murmur Gastrointestinal: Abdomen is soft, non distended, non tender, BS present. Musculoskeletal: No LE edema. Neurologic: Increased tone right more than left, fist clenched which patient tells me is normal and she gets Botox injections every 3 months. Mental Status: A&O x3, normal affect Skin: Warm, dry LABORATORY DATA: Please see below. PROGNOSIS: fair ACTIVITY: [As tolerated]. DIET: Soft diet DISPOSITION: Home DISCHARGE INSTRUCTIONS: Please follow up with your primary care physician within 1 week from discharge. If you do not have one, please follow up with us to schedule an appointment. Please keep all of your follow up appointments. Please call central to book your appointments with hospital specialists. Please take all your medications as prescribed. Please call/come to Clinic or go to the Emergency Department if - Temp >101, intractable Nausea/Vomiting, Diarrhea, Mouth sores, Headaches, Altered mental status, Seizures, sudden onset of swelling, bleeding, shortness of breath or chest pain. Continue to empty ARCHIE drains as instructed by our nurse Follow-up with ENT clinic as instructed in 7 days ITEMS TO FOLLOWUP ON ON OUTPATIENT: Continue to empty ARCHIE drains as instructed by our nurse Follow-up with ENT clinic as instructed in 7 days DISCHARGE CONDITION: [Stable]. TIME SPENT ON DISCHARGE: Greater than 40 minutes. Vital Signs/I&Os Vital Signs Date Time Temp Pulse Resp B/P (MAP) Pulse Ox O2 Delivery O2 Flow Rate FiO2 08/21/20 06:00 97.7 56 18 154/84 (107) 96 08/20/20 16:19 Room Air 08/19/20 08:30 30 I&O- Last 24 Hours up to 6 AM 08/21/20 06:00 Intake Total 730 ml Output Total 1135 ml Balance -405 ml Laboratory Data Labs 24H Laboratory Tests 2 08/21/20 06:01: Nucleated Red Blood Cells % (auto) 0.0, Anion Gap 9, Glomerular Filtration Rate > 60.0, Calcium Level 8.0L, Whole Blood Ionized Calcium 4.1L CBC/BMP Laboratory Tests 08/21/20 06:01 Discharge Medications Scheduled Aspirin (Aspirin EC) 81 Mg Tablet.dr, 81 MG PO DAILY, (Reported) Lamotrigine (Lamictal) 100 Mg Tablet, 125 MG PO BID, (Reported) Loratadine (Claritin) 10 Mg Capsule, 10 MG PO DAILY for allergy symptoms, (Reported) Multivitamin (Multivitamins) 1 Each Capsule, 1 CAP PO DAILY, (Reported) Sumatriptan Succinate (Imitrex) 50 Mg Tablet, 10 MG PO DAILY for headache, (Reported) Miscellaneous Medications Vitamin D (Vitamin D3) 10 Mcg Tablet, 400 MCG PO, (Reported) Allergies Coded Allergies: Penicillins (Verified Allergy, Intermediate, rash, 08/07/20) BRIAN SILVA MD Aug 21, 2020 10:42
[2020-08-21] MEDS ORDERED: PERCOCET PO (10:52)
[2020-08-21] MEDS ORDERED: NAPR250T4 PO (10:52)
[2020-08-21] MEDS ORDERED: CALC1CAP31 PO (10:52)
[2020-08-21] MEDS ORDERED: CALC200T15 PO (10:52)
[2020-08-21] MEDS ORDERED: ACET-897 PO (10:59)
[2020-08-21 11:49] LABS: PTH INTACT 6.6 PG/ML (18.5-88.0)
[2020-08-21] MEDS ORDERED: BACIOIN23 OP (13:10)
== END 2020-08-21 14:11 | disposition home or self-care (01) | DRG 404 ==
LOC: M SDC 06:09 → M ICU 17:08 → M PCU 08-19 14:07 → M MSPAV 08-20 16:14
PROVIDERS: ADMIT Otolaryngology; ATTEND Family Medicine
PROC: 07B10ZX Excision of Right Neck Lymphatic, Open Approach, Diagnostic (ICD-10-PCS; 2020-08-18)
PROC: 07B20ZX Excision of Left Neck Lymphatic, Open Approach, Diagnostic (ICD-10-PCS; 2020-08-18)
PROC: 0GTK0ZZ Resection of Thyroid Gland, Open Approach (ICD-10-PCS; 2020-08-18)
PROC: 5A1935Z Respiratory Ventilation, Less than 24 Consecutive Hours (ICD-10-PCS; principal; 2020-08-18 07:30)
DX: C73 Malignant neoplasm of thyroid gland (principal); J96.90 Respiratory failure, unspecified, unspecified whether with hypoxia or hypercapnia; C77.0 Secondary and unspecified malignant neoplasm of lymph nodes of head, face and neck; I69.351 Hemiplegia and hemiparesis following cerebral infarction affecting right dominant side; E88.09 Other disorders of plasma-protein metabolism, not elsewhere classified; E83.51 Hypocalcemia; J98.11 Atelectasis; E89.2 Postprocedural hypoparathyroidism; Z79.82 Long term (current) use of aspirin; Z79.899 Other long term (current) drug therapy; Z88.0 Allergy status to penicillin; G40.909 Epilepsy, unspecified, not intractable, without status epilepticus; R91.8 Other nonspecific abnormal finding of lung field; E66.9 Obesity, unspecified; Z68.32 Body mass index [BMI] 32.0-32.9, adult

== ENCOUNTER → 2020-09-04 | Outpatient (REF) | payer OTHER ==
[~2020-09-04] MED LIST changes: +ACET-897 PO; +BACIOIN23 OP; +CALC1CAP31 PO; +CALC200T15 PO; -CLINDAMYCIN 300 MG in IV 1 EA IV ONE; -LR 1,000 ML IV ONE; +NAPR250T4 PO; +PERCOCET PO; -dexameTHASONE 4 MG/ML 1ML VIAL (J1100 PER 1MG) IV ONE
[2020-09-05 17:50] LABS: INR 0.95; PROTHROMBIN TIME 12.9 SECONDS (12.5-14.3)
== END ==
LOC: M LAB REF 16:56
PROVIDERS: ATTEND Internal Medicine Pulmonary Disease
DX: R91.8 Other nonspecific abnormal finding of lung field (principal)

== ENCOUNTER → 2020-09-30 | Outpatient (CLI) | payer OTHER ==
[~2020-09-30] MED LIST changes: +AMIT10TA PO; +CAL-1CHW PO; +CETI-24 PO; +D31000TA2 PO; +LAMO25TA4 PO; +LIDOCAINE 1% MDV 20ML VIAL As Ordered ONE; +LIOT50TA PO; +MONT5TAB2 PO; +NAPR220C14 PO; +SODIUM BICARBONATE 8.4% INJ 50MEQ 50 ML VIAL As Ordered ONE; +VITMTA PO
[2020-09-30 09:20] VITALS: BP 133/71
[2020-09-30 10:05] LABS: PROTHROMBIN TIME 13.4 SECONDS (12.5-14.3)
[2020-09-30 10:06] LABS: PARTIAL THROMBOPLASTIN TIME 33.1 SECONDS (24.2-38.5)
--- NOTE | 2020-09-30 11:36 | REP ---
INDICATION: RT LOWER LOBE LUNG NODULE. COMPARISON: None. TECHNIQUE: The procedure is performed by Roshni Kohli [facility], under the direct supervision of Dr. Dr. Magdaleno. The risks and benefits of the procedure were explained to the patient and informed consent was obtained both orally and written. Directly prior to the start of the procedure, a formal timeout was done in the exam room. The right lower lobe lung nodule was localized using CT guidance.. FINDINGS: Multiple attempts were made to gain access to the nodule but each attempt failed did due to involuntary motion and inconsistent breath holds. IMPRESSION: Unable to obtain biopsy due to involuntary muscle movement and inconsistent breathing. We could attempt the biopsy with the assistance of anesthesia providing sedation, if desired. <Electronically signed by Roshni Kohli > 09/30/20 1120 <Electronically signed by Nikhil Magdaleno > 09/30/20 1133
== END ==
LOC: M IRPRO 09:10
PROVIDERS: ATTEND Internal Medicine Pulmonary Disease
DX: R91.1 Solitary pulmonary nodule (principal); Z53.09 Procedure and treatment not carried out because of other contraindication

== ENCOUNTER → 2020-10-13 | Outpatient (CLI) | payer OTHER ==
[~2020-10-13] MED LIST changes: -LIDOCAINE 1% MDV 20ML VIAL As Ordered ONE; +MONT10TA10 PO; -MONT5TAB2 PO; -SODIUM BICARBONATE 8.4% INJ 50MEQ 50 ML VIAL As Ordered ONE
[2020-10-13 09:59] LABS: THYROID STIMULATING HORMONE 0.295 uIU/ML (0.358-3.740)
[2020-10-13 10:42] LABS: PTH INTACT 10.4 PG/ML (18.5-88.0)
== END ==
LOC: M LAB 09:03
PROVIDERS: ATTEND Otolaryngology
DX: E83.51 Hypocalcemia (principal)

== ENCOUNTER → 2020-10-13 | Outpatient (REF) | payer OTHER ==
[2020-10-13 18:01] LABS: BASO % 0.4 % (0.0-1.0); EOS # 0.1 10^3/uL (0.0-0.5); EOS % 1.9 % (0.0-3.0); HEMOGLOBIN 11.6 g/dl (12.0-15.5); LYMPH # 1.9 10^3/uL (1.5-5.0); LYMPH % 27.8 % (24.0-44.0); MEAN CORPUSCULAR HEMOGLOBIN 28.8 pg (27.0-33.0); MEAN CORPUSCULAR HGB CONC 33.1 g/dl (32.0-36.5); MEAN CORPUSCULAR VOLUME 86.8 fl (80.0-96.0); MONO # 0.6 10^3/uL (0.0-0.8); MONO % 8.2 % (0.0-5.0); NEUTROPHILS # 4.3 10^3/uL (1.5-8.5); NEUTROPHILS % 61.3 % (36.0-66.0); PLATELET COUNT, AUTOMATED 374 10^3/uL (150-450); RED BLOOD COUNT 4.03 10^6/uL (4.00-5.40); WHITE BLOOD COUNT 6.9 10^3/uL (4.0-10.0)
[2020-10-13 18:15] LABS: INR 0.92; PARTIAL THROMBOPLASTIN TIME 34.2 SECONDS (24.2-38.5); PROTHROMBIN TIME 12.6 SECONDS (12.5-14.3)
[2020-10-13 18:29] LABS: BLOOD UREA NITROGEN 16 MG/DL (7-18); CALCIUM LEVEL 9.9 MG/DL (8.5-10.1); CARBON DIOXIDE LEVEL 23 MEQ/L (21-32); CHLORIDE LEVEL 105 MEQ/L (98-107); CREATININE FOR GFR 0.74 MG/DL (0.55-1.30); GLOMERULAR FILTRATION RATE > 60.0 (>60); GLUCOSE, FASTING 99 MG/DL (70-100); POTASSIUM SERUM 4.5 MEQ/L (3.5-5.1); RHEUMATOID FACTOR QUANT < 10.0 IU/ML (<15.0); SODIUM LEVEL 139 MEQ/L (136-145)
[2020-10-19 23:18] LABS: ANGIOTENSIN 1 CONVERTING ENZYM 38 U/L (14-82); ASPERGILLUS FLAVUS ABY Negative (Neg:<1:1); ASPERGILLUS FUMIGATUS ABY Negative (Neg:<1:1); ASPERGILLUS NIGER ABY Negative (Neg:<1:1); BLASTOMYCES ANTIBODY LEVEL Negative (Neg:<1:1); CRYPTOCOCCUS ANTIGEN SER Negative (Negative)
== END ==
LOC: M LAB REF 16:43
PROVIDERS: ATTEND Internal Medicine Pulmonary Disease
DX: R91.8 Other nonspecific abnormal finding of lung field (principal); C73 Malignant neoplasm of thyroid gland

== ENCOUNTER 2020-10-15 09:48 | Outpatient (RCR) | payer OTHER ==
[~2020-10-15 09:48] MED LIST changes: -MONT10TA10 PO; +MONT5TAB2 PO
== END 2020-10-19 ==
LOC: M PT 09:48
PROVIDERS: ATTEND Otolaryngology
DX: Z51.89 Encounter for other specified aftercare (principal); Z90.89 Acquired absence of other organs

== ENCOUNTER → 2020-10-15 | Outpatient (CLI) | payer OTHER ==
--- NOTE | 2020-10-16 06:09 | REP ---
INDICATION: ABN FINDING OF LUNG COMPARISON: None TECHNIQUE: Axial noncontrast images from the thoracic inlet to the upper abdomen with coronal and sagittal reformations. This CT examination was performed using the following dose reduction techniques: Automated exposure control, adjustment of mA and/or kv according to the patient's size, and use of iterative reconstruction technique. FINDINGS: Scattered bilateral metastatic nodules are again identified and measure up to 13 mm in the right lower lobe which appear relatively similar/stable as compared to prior examination. No acute consolidation. No effusion. No pneumothorax. Tracheobronchial tree is patent. Evaluation for mediastinal adenopathy is limited due to the lack of intravenous contrast. Thoracic aorta, pulmonary vasculature, and heart/pericardium are relatively normal. Surrounding musculoskeletal structures are intact. Limited upper abdomen demonstrates normal bilateral adrenal glands along with small nonobstructing bilateral nephroliths. IMPRESSION: Bilateral metastatic nodules up to 13 mm essentially unchanged from prior examination. No new acute process appreciated. <Electronically signed by Jon Lai > 10/16/20 0606
== END ==
LOC: M RAD 16:01
PROVIDERS: ATTEND Internal Medicine Pulmonary Disease
DX: R91.8 Other nonspecific abnormal finding of lung field (principal)

== ENCOUNTER → 2020-10-17 | Outpatient (CLI) | payer OTHER | LOC: M LABSMTC 09:39 | PROVIDERS: ATTEND Anesthesiology | DX: Z01.812 Encounter for preprocedural laboratory examination (principal); Z20.822 Contact with and (suspected) exposure to COVID-19 ==

== ENCOUNTER 2020-10-22 08:15 | Day surgery (SDC) | payer OTHER ==
[~2020-10-22] VITALS: Ht 149.9 cm; Wt 69.3 kg
[~2020-10-22 08:15] MED LIST changes: +ALBUTEROL SULFATE 2.5 MG/0.5 ML INH NEB SOLN INH ONE; +CETACAINE SPRAY 5GM As Ordered ONE; +EPINEPHrine 1MG/10ML SYRINGE 1.5IN As Ordered ONE; +LIDOCAINE 1% MDV 20ML VIAL SQ PRN; +LIDOCAINE 1% SDV 30ML VIAL As Ordered ONE; +LIDOCAINE 4% INJ 5ML AMP INH ONE; +LR 1,000 ML IV ONE; +THROMBIN SOLN 20,000 UNITS KIT As Ordered ONE; +THROMBIN SOLN 5,000 UNITS VIAL As Ordered ONE
[2020-10-22] MEDS ORDERED: fentaNYL 250 MCG/5 ML INJECTION (J3010) As Ordered ONE (08:16)
[2020-10-22] MEDS ORDERED: MIDAZOLAM INJ 2MG/2ML VIAL (J2250 PER 1MG) As Ordered ONE (08:16)
[2020-10-22] MEDS ORDERED: SUGAMMADEX SODIUM 500 MG/5 ML VIAL (BRIDION) As Ordered ONE (08:30)
[2020-10-22] MEDS ORDERED: ROCURONIUM BROMIDE 50 MG/5 ML VIAL As Ordered ONE (08:30)
[2020-10-22] MEDS ORDERED: dexameTHASONE 4 MG/ML 1ML VIAL (J1100 PER 1MG) As Ordered ONE (08:30)
[2020-10-22] MEDS ORDERED: propofoL 200 MG/20 ML VIAL As Ordered ONE (08:30)
[2020-10-22] MEDS ORDERED: LIDOCAINE 2% 100MG/5ML SDV (FOR ANES.) As Ordered ONE (08:30)
[2020-10-22] MEDS ORDERED: ONDANSETRON 4MG/2ML VIAL As Ordered ONE (08:30)
[2020-10-22] MEDS ORDERED: ACETAMINOPHEN 1000MG 100ML IV BTL (OFIRMEV) (J0131 PER 10MG) As Ordered ONE (09:42)
--- NOTE | 2020-10-22 11:07 | REP ---
INDICATION: RIGHT LOWER LOVE ABNORMALITY. COMPARISON: None. TECHNIQUE: Twenty views. 4 minutes 30 seconds of fluoroscopy time is reported. FINDINGS: A sequence of 20 last image hold fluoroscopically obtained spot radiographs of the chest document bronchoscopic instrumentation. IMPRESSION: Procedural imaging. <Electronically signed by Dave Mccarthy > 10/22/20 1109
--- NOTE | 2020-10-22 11:13 | ROOR ---
Patient Name: Ana Cornelius Procedure Date: 10/22/2020 9:16 AM Date of : 1980 Admit Type: Outpatient Age: 39 Note Status: Finalized Attending MD: Sahara Mckinley MD Procedure: Bronchoscopy Indications: Multiple pulmonary nodules, Personal history of thyroid cancer Providers: Sahara Mckinley MD (Doctor), Dale Hassan DO, [facility] (1st Assisting Doctor) Referring MD: 1. No Referring Physician 1. No Referring Physician, Admin. (Referring MD) Requesting Physician: Medicines: Lidocaine 4% via nebulizer with Albuterol 2.5 mg, Epinephrine 1 mg/10 mL topical 1 mL, Cetacaine topical, General Anesthesia Complications: No immediate complications. Estimated blood loss: Minimal Procedure: Pre-Anesthesia Assessment: - Prior to the procedure, a History and Physical was performed, and patient medications and allergies were reviewed. The patient's tolerance of previous anesthesia was also reviewed. The risks and benefits of the procedure and the sedation options and risks were discussed with the patient. All questions were answered, and informed consent was obtained. Prior Anticoagulants: The patient has taken aspirin, last dose was day of procedure. ASA Grade Assessment: III - A patient with severe systemic disease. After reviewing the risks and benefits, the patient was deemed in satisfactory condition to undergo the procedure. - Patient identification and proposed procedure were verified prior to the procedure by the physician, the nurse, the anesthesiologist, the analytic programmer and the fiscal technician. The procedure was verified in the procedure room. The Bronchoscope was introduced through the mouth, via the endotracheal tube (the patient was intubated for the procedure) and advanced to the tracheobronchial tree of both lungs. The procedure was accomplished without difficulty. The patient tolerated the procedure well. Findings: The endotracheal tube is in good position. The visualized portion of the trachea is of normal caliber. The arben is sharp. The tracheobronchial tree was examined to at least the first subsegmental level. Bronchial mucosa and anatomy are normal; there are no endobronchial lesions, andonly scant secretions. [employer] Robotic electromagnetic navigation bronchoscopy was performed. The CT scan was used for planning purposes. A virtual bronchoscopic image was generated using the planning software. The targets in the anterior segment of the right upper lobe and in the superior segment of the right lower lobe were marked. A nodule in the right lower lobe and nodule in right upper lobe were found and pathways were created. After a complete airway exam, the robotic navigation bronchoscopy phase was then begun to locate the target lesion(s). In the right lower lobe superior segment target positioning centrally (in relation to the lesion) was confirmed using the Olympus radial probe US catheter. Fluoroscopy guided transbronchial brushings of a nodule were obtained in in the superior segment of the right lower lobe with a cytology brush and sent for routine cytology. Transbronchial brushing technique was selected because the sampling site was not visible endoscopically. Transbronchial biopsies of a nodule were performed in the superior segment of the right lower lobe using forceps and sent for histopathology examination. The procedure was guided by fluoroscopy. Transbronchial biopsy technique was selected because the sampling site was not visible endoscopically. The target in the anterior segment of right upper lobe was noted to have off central positioning (in relation to the lesion) using the Olympus radial probe US catheter. There was also visualized blood vessel adjacent to the target. Fluoroscopy guided transbronchial brushings of a nodule were obtained in in the anterior segment of the right upper lobe with a cytology brush and sent for routine cytology. Transbronchial brushing technique was selected because the sampling site was not visible endoscopically. An endobronchial ultrasound endoscope was utilized in order to assist with fine needle aspiration in the subcarinal area and in the left hilum. Transbronchial needle aspirations of lymph nodes were performed in the subcarinal area and in the left hilum using an Olympus EBUS-TBNA 21 gauge needle and sent for routine cytology. The procedure was guided by ultrasound. Transbronchial needle aspiration technique was selected because the sampling site was not visible endoscopically. Impression: - Multiple pulmonary nodules - Personal history of thyroid cancer - The airway examination was normal. - Robotic Electromagnetic navigation bronchoscopy was performed. - Transbronchial brushings were obtained. - Transbronchial lung biopsies were performed. - Endobronchial ultrasound was performed. - A transbronchial needle aspiration was performed. Recommendation: - Await test results. Procedure Code(s): --- Professional --- 05209, Bronchoscopy, rigid or flexible, including fluoroscopic guidance, when performed; with transbronchial needle aspiration biopsy(s), trachea, main stem and/or lobar bronchus(i) 05187, Bronchoscopy, rigid or flexible, including fluoroscopic guidance, when performed; with transbronchial lung biopsy(s), single lobe 21558, Bronchoscopy, rigid or flexible, including fluoroscopic guidance, when performed; with brushing or protected brushings 53724, Bronchoscopy, rigid or flexible, including fluoroscopic guidance, when performed; with computer-assisted, image-guided navigation (List separately in addition to code for primary procedure[s]) 28259, Bronchoscopy, rigid or flexible, including fluoroscopic guidance, when performed; with transendoscopic endobronchial ultrasound (EBUS) during bronchoscopic diagnostic or therapeutic intervention(s) for peripheral lesion(s) (List separately in addition to code for primary procedure[s]) CPT copyright 2019 [employer]. All rights reserved. The codes documented in this report are preliminary and upon professional fee coder review may be revised to meet current compliance requirements. Attending Participation: I personally performed the entire procedure. Sahara Mckinley MD 10/22/2020 11:12:46 AM Dale Hassan DO, [facility] Number of Addenda: 0 Note Initiated On: 10/22/2020 9:16 AM
[2020-10-22] MEDS ORDERED: oxyCODONE 5MG TAB PO PRN (11:30)
[2020-10-22] MEDS ORDERED: fentaNYL 100 MCG/2 ML INJECTION (J3010) IV PRN (11:30)
[2020-10-22] MEDS ORDERED: ONDANSETRON 4MG/2ML VIAL IV PRN (11:30)
[2020-10-22] MEDS ORDERED: LR 1,000 ML IV SCH (11:30)
[2020-10-22] MEDS ORDERED: HYDROMORPHONE HCL 0.5 MG/ 0.5 ML SYRINGE (J1170 PER 1) IV PRN (11:30)
--- NOTE | 2020-10-22 11:35 | REP ---
INDICATION: POST OP IN PACU/ BRONCHOSCOPY. COMPARISON: Comparison chest x-ray August 19, 2020.. TECHNIQUE: Portable AP sitting technique. Single-view. FINDINGS: There is no evidence of pneumothorax or hydrothorax. Nodular opacities are again seen in the lung jarvis bilaterally. The largest density is infrahilar behind the heart. No bony abnormality is seen. IMPRESSION: No evidence of pneumothorax or hydrothorax. <Electronically signed by Dave Mccarthy > 10/22/20 3325
[2020-10-22 11:50] VITALS: BP 141/77
== END 2020-10-22 12:20 | disposition home or self-care (01) ==
LOC: M SDC 08:15
PROVIDERS: ATTEND Internal Medicine Pulmonary Disease
DX: R91.8 Other nonspecific abnormal finding of lung field (principal); R59.0 Localized enlarged lymph nodes; C73 Malignant neoplasm of thyroid gland; C77.0 Secondary and unspecified malignant neoplasm of lymph nodes of head, face and neck; I69.998 Other sequelae following unspecified cerebrovascular disease; E21.1 Secondary hyperparathyroidism, not elsewhere classified; E89.0 Postprocedural hypothyroidism; J30.89 Other allergic rhinitis; I51.4 Myocarditis, unspecified; Z88.0 Allergy status to penicillin
CPT/HCPCS: 31623; 31627; 31628; 31629; 31654; 71045; 76000; 88104; 88173; 88305; J0131; J1100; J2250; J2405; J3010

== ENCOUNTER → 2020-11-06 | Outpatient (CLI) | payer OTHER ==
[~2020-11-06] MED LIST changes: -ALBUTEROL SULFATE 2.5 MG/0.5 ML INH NEB SOLN INH ONE; -CETACAINE SPRAY 5GM As Ordered ONE; -EPINEPHrine 1MG/10ML SYRINGE 1.5IN As Ordered ONE; -LIDOCAINE 1% MDV 20ML VIAL SQ PRN; -LIDOCAINE 1% SDV 30ML VIAL As Ordered ONE; -LIDOCAINE 4% INJ 5ML AMP INH ONE; -LR 1,000 ML IV ONE; +MONT10TA10 PO; -MONT5TAB2 PO; -THROMBIN SOLN 20,000 UNITS KIT As Ordered ONE; -THROMBIN SOLN 5,000 UNITS VIAL As Ordered ONE
== END ==
LOC: M LAB 10:07
PROVIDERS: ATTEND Physician Assistant Medical
DX: R56.9 Unspecified convulsions (principal)

== ENCOUNTER → 2020-11-06 | Outpatient (CLI) | payer OTHER ==
[2020-11-06 11:11] LABS: MAGNESIUM LEVEL 1.7 MG/DL (1.8-2.4)
[2020-11-06 11:26] LABS: PTH INTACT 8.9 PG/ML (18.5-88.0)
== END ==
LOC: M LAB 10:03
PROVIDERS: ATTEND Otolaryngology
DX: C73 Malignant neoplasm of thyroid gland (principal); C77.0 Secondary and unspecified malignant neoplasm of lymph nodes of head, face and neck

== ENCOUNTER 2020-11-10 16:45 | Outpatient (RCR) | payer OTHER ==
[~2020-11-10 16:45] MED LIST changes: -AMIT10TA PO; +AMIT10TA7 PO; +NAPR-849 PO; -NAPR250T4 PO
== END 2020-11-16 ==
LOC: M PT 16:45
PROVIDERS: ATTEND Otolaryngology
DX: M25.512 Pain in left shoulder (principal)

== ENCOUNTER 2020-12-04 10:00 | Outpatient (RCR) | payer OTHER | END 2020-12-17 | LOC: M PT 10:00 | PROVIDERS: ATTEND Otolaryngology | DX: M25.512 Pain in left shoulder (principal) ==

== ENCOUNTER 2021-01-07 16:00 | Outpatient (RCR) | payer OTHER | END 2021-01-16 | LOC: M PT 16:00 | PROVIDERS: ATTEND Otolaryngology | DX: M25.512 Pain in left shoulder (principal) ==

== ENCOUNTER → 2021-04-16 | Outpatient (CLI) | payer OTHER | LOC: M LAB 12:06 | PROVIDERS: ATTEND Physician Assistant Medical | DX: G40.89 Other seizures (principal) ==

== ENCOUNTER → 2021-12-11 | Outpatient (CLI) | payer OTHER ==
[~2021-12-11] MED LIST changes: -D31000TA2 PO; -MONT10TA10 PO; +MONT10TA97 PO; +VITA100093 PO
== END ==
LOC: M RAD 08:09
PROVIDERS: ATTEND Internal Medicine
DX: C78.00 Secondary malignant neoplasm of unspecified lung (principal)

== ENCOUNTER → 2021-12-30 | Outpatient (CLI) | payer OTHER ==
[~2021-12-30] MED LIST changes: +ISOVUE-370 76% 100ML VIAL As Ordered ONE
== END ==
LOC: M RAD 07:52
PROVIDERS: ATTEND Internal Medicine
DX: C73 Malignant neoplasm of thyroid gland (principal)
CPT/HCPCS: 70491; Q9967

== ENCOUNTER → 2022-06-11 | Outpatient (CLI) | payer OTHER ==
[~2022-06-11] MED LIST changes: -ISOVUE-370 76% 100ML VIAL As Ordered ONE
== END ==
LOC: M WHC 14:39
PROVIDERS: ATTEND Family Medicine
DX: Z12.31 Encounter for screening mammogram for malignant neoplasm of breast (principal); M89.9 Disorder of bone, unspecified

== ENCOUNTER → 2022-07-14 | Outpatient (CLI) | payer OTHER | LOC: M WHC 14:49 | PROVIDERS: ATTEND Family Medicine | DX: R92.8 Other abnormal and inconclusive findings on diagnostic imaging of breast (principal); N63.10 Unspecified lump in the right breast, unspecified quadrant; N63.20 Unspecified lump in the left breast, unspecified quadrant ==

== ENCOUNTER → 2022-11-25 | Outpatient (CLI) | payer OTHER ==
[~2022-11-25] MED LIST changes: +ISOVUE-370 76% 100ML VIAL As Ordered ONE
== END ==
LOC: M RAD 15:00
PROVIDERS: ATTEND Internal Medicine
DX: C73 Malignant neoplasm of thyroid gland (principal); E89.0 Postprocedural hypothyroidism; R91.8 Other nonspecific abnormal finding of lung field; E04.2 Nontoxic multinodular goiter; N20.0 Calculus of kidney

== ENCOUNTER 2023-01-13 15:45 | Outpatient (RCR) | payer OTHER ==
[~2023-01-13 15:45] MED LIST changes: -ISOVUE-370 76% 100ML VIAL As Ordered ONE
== END 2023-01-16 ==
LOC: M PT 15:45
PROVIDERS: ATTEND Otolaryngology
DX: M25.69 Stiffness of other specified joint, not elsewhere classified (principal)

== ENCOUNTER → 2023-01-25 | Outpatient (CLI) | payer OTHER | LOC: M WHC 15:17 | PROVIDERS: ATTEND Family Medicine | DX: R92.2 Inconclusive mammogram (principal) ==

== ENCOUNTER → 2023-02-16 | Outpatient (RCR) | payer OTHER | LOC: M PT 01-31 15:45 | PROVIDERS: ATTEND Otolaryngology | DX: M25.60 Stiffness of unspecified joint, not elsewhere classified (principal); Z98.890 Other specified postprocedural states ==

== ENCOUNTER 2023-03-14 12:00 | Outpatient (RCR) | payer OTHER | END 2023-03-18 | LOC: M PT 12:00 | PROVIDERS: ATTEND Otolaryngology | DX: M25.60 Stiffness of unspecified joint, not elsewhere classified (principal); Z98.890 Other specified postprocedural states ==

== ENCOUNTER 2023-03-25 09:30 | Outpatient (RCR) | payer OTHER | END 2023-04-18 | LOC: M PT 09:30 | PROVIDERS: ATTEND Otolaryngology | DX: M25.60 Stiffness of unspecified joint, not elsewhere classified (principal); Z98.890 Other specified postprocedural states ==

== ENCOUNTER 2023-05-12 09:30 | Outpatient (RCR) | payer OTHER | END 2023-05-19 | LOC: M PT 09:30 | PROVIDERS: ATTEND Otolaryngology | DX: M54.2 Cervicalgia (principal) ==

== ENCOUNTER → 2023-05-12 | Outpatient (CLI) | payer OTHER ==
[2023-05-12 09:48] LABS: BASO # 0.1 10^3/uL (0.0-0.2); BASO % 0.7 % (0.0-1.0); EOS # 0.3 10^3/uL (0.0-0.5); EOS % 3.5 % (0.0-3.0); HEMATOCRIT 36.7 % (36.0-47.0); HEMOGLOBIN 12.1 g/dl (12.0-15.5); LYMPH # 2.3 10^3/uL (1.5-5.0); LYMPH % 32.7 % (24.0-44.0); MEAN CORPUSCULAR HEMOGLOBIN 29.3 pg (27.0-33.0); MEAN CORPUSCULAR VOLUME 88.9 fl (80.0-96.0); MONO # 0.6 10^3/uL (0.0-0.8); MONO % 8.5 % (2.0-8.0); NEUTROPHILS # 3.8 10^3/uL (1.5-8.5); NEUTROPHILS % 53.9 % (36.0-66.0); PLATELET COUNT, AUTOMATED 311 10^3/uL (150-450); RED BLOOD COUNT 4.13 10^6/uL (4.00-5.40); WHITE BLOOD COUNT 7.1 10^3/uL (4.0-10.0)
[2023-05-12 10:11] LABS: ALBUMIN 3.7 G/DL (3.2-5.2); ALKALINE PHOSPHATASE 57 U/L (46-116); ALT/SGPT 23 U/L (7.0-40); AST/SGOT 11 U/L (<34); BILIRUBIN,TOTAL 0.5 MG/DL (0.3-1.2); BLOOD UREA NITROGEN 10 MG/DL (9-23); CALCIUM LEVEL 9.1 MG/DL (8.5-10.1); CARBON DIOXIDE LEVEL 28 MMOL/L (20-31); CHLORIDE LEVEL 107 MMOL/L (98-107); CHOLESTEROL LEVEL 183 MG/DL (<200); CREATININE FOR GFR 0.62 MG/DL (0.55-1.30); GLOMERULAR FILTRATION RATE > 60.0 (>58); GLUCOSE, FASTING 94 MG/DL (60-100); HDL CHOLESTEROL 55.3 MG/DL (>40); LDL CHOLESTEROL 114.9 MG/DL (<100); NON-HDL-C 127.7 MG/DL; POTASSIUM SERUM 4.3 MMOL/L (3.5-5.1); SODIUM LEVEL 140 MMOL/L (136-145); TOTAL PROTEIN 7.2 G/DL (5.7-8.2); TRIGLYCERIDES LEVEL 64 MG/DL (<150)
[2023-05-12 10:13] LABS: TOTAL 25(OH) VITAMIN D 26.3 NG/ML (20.0-100.0)
[2023-05-13 11:28] LABS: FREE T4 1.64 NG/DL (0.89-1.76); THYROID STIMULATING HORMONE 0.009 uIU/ML (0.55-4.78)
== END ==
LOC: M LAB 09:21
PROVIDERS: ATTEND Family Medicine
DX: E03.8 Other specified hypothyroidism (principal); E55.9 Vitamin D deficiency, unspecified

== ENCOUNTER → 2023-07-01 | Outpatient (CLI) | payer OTHER | LOC: M WHC 15:37 | PROVIDERS: ATTEND Family Medicine | DX: Z12.31 Encounter for screening mammogram for malignant neoplasm of breast (principal); Z53.9 Procedure and treatment not carried out, unspecified reason ==

== ENCOUNTER → 2023-08-01 | Outpatient (CLI) | payer OTHER ==
[2023-08-01 17:20] LABS: FREE T4 2.01 NG/DL (0.89-1.76); THYROID STIMULATING HORMONE 0.009 uIU/ML (0.55-4.78)
== END ==
LOC: M LAB 15:44
PROVIDERS: ATTEND Nurse Practitioner
DX: C73 Malignant neoplasm of thyroid gland (principal); C79.9 Secondary malignant neoplasm of unspecified site

== ENCOUNTER 2024-02-10 10:19 | Outpatient (RCR) | payer OTHER | END 2024-02-17 | LOC: M PT 10:19 | PROVIDERS: ATTEND Nurse Practitioner | DX: M54.2 Cervicalgia (principal) ==

== ENCOUNTER → 2024-03-07 | Outpatient (CLI) | payer OTHER ==
[2024-03-07 14:36] LABS: BASO % 0.4 % (0.0-1.0); EOS # 0.2 10^3/uL (0.0-0.5); EOS % 2.2 % (0.0-3.0); HEMATOCRIT 36.2 % (36.0-47.0); HEMOGLOBIN 12.2 g/dl (12.0-15.5); LYMPH % 30.2 % (24.0-44.0); MEAN CORPUSCULAR HEMOGLOBIN 29.3 pg (27.0-33.0); MEAN CORPUSCULAR HGB CONC 33.7 g/dl (32.0-36.5); MONO # 0.8 10^3/uL (0.0-0.8); NEUTROPHILS # 3.7 10^3/uL (1.5-8.5); NEUTROPHILS % 54.9 % (36.0-66.0); PLATELET COUNT, AUTOMATED 333 10^3/uL (150-450); RED BLOOD COUNT 4.16 10^6/uL (4.00-5.40); WHITE BLOOD COUNT 6.8 10^3/uL (4.0-10.0)
[2024-03-07 15:02] LABS: ALBUMIN 3.6 G/DL (3.2-5.2); ALKALINE PHOSPHATASE 66 U/L (46-116); ALT/SGPT 26 U/L (7.0-40); AST/SGOT 16 U/L (<34); BILIRUBIN,TOTAL 0.3 MG/DL (0.3-1.2); BLOOD UREA NITROGEN 15 MG/DL (9-23); CALCIUM LEVEL 9.3 MG/DL (8.5-10.1); CARBON DIOXIDE LEVEL 24 MMOL/L (20-31); CHLORIDE LEVEL 107 MMOL/L (98-107); CREATININE FOR GFR 0.62 MG/DL (0.55-1.30); GLOMERULAR FILTRATION RATE > 60.0 (>58); GLUCOSE, FASTING 96 MG/DL (60-100); POTASSIUM SERUM 4.2 MMOL/L (3.5-5.1); SODIUM LEVEL 138 MMOL/L (136-145); TOTAL PROTEIN 7.2 G/DL (5.7-8.2)
== END ==
LOC: M LAB 13:22
PROVIDERS: ATTEND Psychiatry & Neurology Neurology
DX: G40.909 Epilepsy, unspecified, not intractable, without status epilepticus (principal)

== ENCOUNTER 2024-03-13 09:44 | Outpatient (RCR) | payer OTHER | END 2024-03-18 | LOC: M PT 09:44 | PROVIDERS: ATTEND Nurse Practitioner | DX: M54.2 Cervicalgia (principal) ==

== ENCOUNTER 2024-04-12 10:22 | Outpatient (RCR) | payer OTHER ==
[~2024-04-12 10:22] MED LIST changes: +AMIT25TA19 PO; +FAMO40TA3 PO; +FLON1SPR; +LAMO100T3 PO; +LEVO200T4 PO; +LISI40TA4 PO; +SALA1TAB PO
== END 2024-04-18 ==
LOC: M PT 10:22
PROVIDERS: ATTEND Nurse Practitioner
DX: M54.2 Cervicalgia (principal)

== ENCOUNTER 2024-04-24 06:06 | Day surgery (SDC) | payer OTHER ==
[~2024-04-24] VITALS: Ht 149.9 cm; Wt 70.1 kg
[2024-04-24] MEDS ORDERED: LR 1,000 ML IV SCH ×2 (06:30→08:45)
[2024-04-24] MEDS ORDERED: ROCURONIUM BROMIDE 50MG/5ML VIAL As Ordered ONE (06:54)
[2024-04-24] MEDS ORDERED: propofoL 200 MG/20 ML VIAL As Ordered ONE (06:58)
[2024-04-24] MEDS ORDERED: LIDOCAINE 2% 100MG/5ML SDV (FOR ANES.) As Ordered ONE (07:01)
[2024-04-24] MEDS ORDERED: MIDAZOLAM INJ 2MG/2ML VIAL As Ordered ONE (07:04)
[2024-04-24] MEDS ORDERED: fentaNYL 100 MCG/2 ML INJECTION As Ordered ONE (07:06)
[2024-04-24] MEDS ORDERED: ceFAZolin SOD 1 GM in D5W MINI-BAG PLUS 50 ML IV ONE (07:25)
[2024-04-24] MEDS: OXYMETAZOLINE 0.05% NASAL SPRAY (AFRIN) As Ordered ONE (07:28)
[2024-04-24] MEDS: CLINDAMYCIN 900 MG in IV 1 EA IV ONE (07:30)
[2024-04-24] MEDS ORDERED: CLINDAMYCIN 900MG/50ML PREMIX BAG As Ordered ONE (07:30)
[2024-04-24] MEDS ORDERED: LABETALOL 100MG/20ML VIAL As Ordered ONE (07:41)
[2024-04-24] MEDS ORDERED: SUGAMMADEX SODIUM 500 MG/5 ML VIAL (BRIDION) As Ordered ONE (07:41)
[2024-04-24] MEDS ORDERED: ONDANSETRON 4MG 2ML VIAL As Ordered ONE (07:41)
[2024-04-24] MEDS ORDERED: ACETAMINOPHEN 1000MG 100ML IV BAG As Ordered ONE (07:42)
[2024-04-24] MEDS: LIDOCAINE 2% W/ EPINEPHRINE 1.7 ML DENTAL INJ As Ordered ONE (07:45)
[2024-04-24] MEDS ORDERED: KETOROLAC 60MG 2ML VIAL As Ordered ONE (07:56)
[2024-04-24] MEDS ORDERED: oxyCODONE 5MG TAB PO PRN (08:45)
[2024-04-24] MEDS ORDERED: ONDANSETRON 4MG 2ML VIAL IV PRN (08:45)
[2024-04-24] MEDS ORDERED: fentaNYL 100 MCG/2 ML INJECTION IV PRN (08:45)
[2024-04-24] MEDS ORDERED: HYDROMORPHONE HCL 0.5 MG/ 0.5 ML SYRINGE IV PRN (08:45)
[2024-04-24 09:55] VITALS: BP 127/68; TEMP 97.4; O2SAT 96
== END 2024-04-24 10:00 | disposition home or self-care (01) ==
LOC: M SDC 06:06
PROVIDERS: ATTEND Dentist
DX: K02.9 Dental caries, unspecified (principal); I10 Essential (primary) hypertension; K21.9 Gastro-esophageal reflux disease without esophagitis; E03.9 Hypothyroidism, unspecified; Z92.21 Personal history of antineoplastic chemotherapy; Z79.82 Long term (current) use of aspirin; G40.909 Epilepsy, unspecified, not intractable, without status epilepticus; Z88.0 Allergy status to penicillin; Z79.899 Other long term (current) drug therapy
CPT/HCPCS: 88300; C9290; D7111; D7210; D9223; J0131; J0737; J1100; J1885; J1920; J2250; J2405; J3010

== ENCOUNTER → 2024-06-20 | Outpatient (CLI) | payer OTHER ==
[2024-06-20 16:55] LABS: BASO % 0.6 % (0.0-1.0); EOS # 0.1 10^3/uL (0.0-0.5); EOS % 2.2 % (0.0-3.0); HEMATOCRIT 32.5 % (36.0-47.0); HEMOGLOBIN 10.9 g/dl (12.0-15.5); LYMPH % 31.5 % (24.0-44.0); MEAN CORPUSCULAR HEMOGLOBIN 29.5 pg (27.0-33.0); MEAN CORPUSCULAR HGB CONC 33.5 g/dl (32.0-36.5); MEAN CORPUSCULAR VOLUME 87.8 fl (80.0-96.0); MONO # 0.5 10^3/uL (0.0-0.8); MONO % 7.3 % (2.0-8.0); NEUTROPHILS # 3.8 10^3/uL (1.5-8.5); NEUTROPHILS % 58.1 % (36.0-66.0); PLATELET COUNT, AUTOMATED 316 10^3/uL (150-450); WHITE BLOOD COUNT 6.5 10^3/uL (4.0-10.0)
[2024-06-20 17:21] LABS: ALBUMIN 3.4 G/DL (3.2-5.2); ALKALINE PHOSPHATASE 65 U/L (46-116); ALT/SGPT 21 U/L (7.0-40); AST/SGOT 14 U/L (<34); BILIRUBIN,TOTAL 0.2 MG/DL (0.3-1.2); BLOOD UREA NITROGEN 12 MG/DL (9-23); CALCIUM LEVEL 8.9 MG/DL (8.5-10.1); CARBON DIOXIDE LEVEL 26 MMOL/L (20-31); CHLORIDE LEVEL 107 MMOL/L (98-107); CHOLESTEROL LEVEL 183 MG/DL (<200); CHOLESTEROL RISK RATIO 4.36 (<5); CREATININE FOR GFR 0.62 MG/DL (0.55-1.30); GLOMERULAR FILTRATION RATE > 60.0 (>58); GLUCOSE, FASTING 115 MG/DL (60-100); HDL CHOLESTEROL 41.9 MG/DL (>40); LDL CHOLESTEROL 113.5 MG/DL (<100); NON-HDL-C 141.1 MG/DL; POTASSIUM SERUM 3.9 MMOL/L (3.5-5.1); SODIUM LEVEL 138 MMOL/L (136-145); TOTAL PROTEIN 6.8 G/DL (5.7-8.2); TRIGLYCERIDES LEVEL 138 MG/DL (<150)
== END ==
LOC: M LAB 16:12
PROVIDERS: ATTEND Nurse Practitioner
DX: Z00.00 Encounter for general adult medical examination without abnormal findings (principal)

== ENCOUNTER → 2024-09-28 | Outpatient (CLI) | payer OTHER | LOC: M WHC 15:38 | PROVIDERS: ATTEND Nurse Practitioner | DX: Z12.31 Encounter for screening mammogram for malignant neoplasm of breast (principal); R92.333 Mammographic heterogeneous density, bilateral breasts ==

== ENCOUNTER 2025-04-08 14:14 | Outpatient (RCR) | payer OTHER ==
[~2025-04-08 14:14] MED LIST changes: +AMIT10TA11 PO; -AMIT10TA7 PO; +LAMO-18 PO; -LAMO25TA4 PO; +LISI40TA10 PO; -LISI40TA4 PO
== END 2025-04-18 ==
LOC: M PT 14:14
PROVIDERS: ATTEND Nurse Practitioner
DX: M54.2 Cervicalgia (principal)

== ENCOUNTER 2025-04-22 12:26 | Outpatient (RCR) | payer OTHER | END 2025-05-19 | LOC: M PT 12:26 | PROVIDERS: ATTEND Nurse Practitioner | DX: M54.2 Cervicalgia (principal) ==

== ENCOUNTER → 2025-09-04 | Outpatient (CLI) | payer OTHER ==
[2025-09-04 17:17] LABS: BASO # 0.0 10^3/uL (0.0-0.2); BASO % 0.6 % (0.0-1.0); EOS # 0.2 10^3/uL (0.0-0.5); EOS % 2.5 % (0.0-3.0); LYMPH # 2.3 10^3/uL (1.5-5.0); LYMPH % 32.8 % (24.0-44.0); MONO # 0.6 10^3/uL (0.0-0.8); MONO % 8.4 % (2.0-8.0); NEUTROPHILS # 3.9 10^3/uL (1.5-8.5); NEUTROPHILS % 54.3 % (36.0-66.0); PLATELET COUNT, AUTOMATED 357 10^3/uL (150-450)
[2025-09-04 17:29] LABS: IRON (FE) 95 UG/DL (50-170); PERCENT SATURATION 30.2 % (13.2-45.0)
[2025-09-04 17:30] LABS: RHEUMATOID FACTOR QUANT < 3.5 IU/ML (<14)
[2025-09-04 17:32] LABS: VITAMIN B12 LEVEL 320 PG/ML (211-911)
[2025-09-08 18:17] LABS: VITAMIN E(ALPHA TOCOPHEROL) 12.7 mg/L (5.7-19.9); VITAMIN E(GAMMA TOCOPHEROL) 1.1 mg/L (<=4.3)
[2025-09-09 01:32] LABS: COPPER PLASMA 99 mcg/dL (70-175)
[2025-09-09 19:12] LABS: VITAMIN B6,PYRIDOXAL PHOSPHATE 11.6 ng/mL (2.1-21.7)
[2025-09-11 16:42] LABS: VITAMIN B1 LEVEL WHOLE BLOOD 111 nmol/L (78-185)
== END ==
LOC: M LAB 15:57
PROVIDERS: ATTEND Psychiatry & Neurology Neurology
DX: D64.9 Anemia, unspecified (principal); R56.9 Unspecified convulsions